=== PATIENT | male | born 1975 | race African-American/Black ===

== ENCOUNTER 2016-08-25 18:05 | Emergency (ER) | payer MEDICAID ==
[~2016-08-25] VITALS: Ht 188 cm; Wt 122.5 kg
[2016-08-25 18:06] VITALS: BP_SYST 156; BP_SYST 202; BP_DIAS 114; BP_DIAS 125
[2016-08-25] MEDS ORDERED: ORETIC25 MG PO (18:10)
--- NOTE | 2016-08-25 19:50 | NUR ---
PATIENT AMBULATED TO ER BED 8
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
--- NOTE | 2016-08-25 20:15 | NUR ---
Dr. Fuller evaluating patient at bedside.
[2016-08-25 22:46] VITALS: BP 152/78
--- NOTE | 2016-08-25 22:46 | NUR ---
Patient discharged with v/s stable. Written and verbal after care instructions given and explained. Patient alert, oriented and verbalized understanding of instructions. Ambulatory with steady gait. All questions addressed prior to discharge. ID band removed. Patient advised to follow up with PMD. Rx of Furosemide and KCl given. Patient educated on indication of medication including possible reaction and side effects. Opportunity to ask questions provided and answered.
== END 2016-08-25 22:46 | disposition home or self-care (01) ==
LOC: MED 18:05
DX: J81.1 Chronic pulmonary edema (principal); I10 Essential (primary) hypertension